=== PATIENT | female | born 1995 | race Caucasian/White ===

== ENCOUNTER 2017-12-19 10:54 | Outpatient (CLI) | payer OTHER ==
[~2017-12-19] VITALS: Ht 162.6 cm; Wt 67.3 kg
[2017-12-19 11:09] VITALS: BP 118/75; PULSE 80; TEMP 98.3
[2017-12-19 11:10] VITALS: BP 118/75; PULSE 80; TEMP 98.3
[2017-12-19] MEDS ORDERED: PRENATAL (11:15)
[2017-12-19 12:02] VITALS: BP 99/56; PULSE 74
[2017-12-19 12:13] VITALS: PULSE 78
== END 2017-12-19 12:17 | disposition home or self-care (01) ==
LOC: LDRO 10:54
DX: Z34.82 Encounter for supervision of other normal pregnancy, second trimester (principal); Z3A.23 23 weeks gestation of pregnancy

== ENCOUNTER 2020-12-24 12:28 | Outpatient (CLI) | payer OTHER ==
[~2020-12-24] VITALS: Ht 162.6 cm; Wt 69.5 kg
--- NOTE | 2020-12-24 12:20 | NUR ---
1220- 18.6, G6L2 patient arrives on unit with c/o of fall yesterday, and vaginal bleeding. Denies any LOF. Reports decreased in normal movement. Reports some mild cramping. Patient states the bleeing was worse yesterday, and has noticed a few smears of blood when wiping today. Vitals obtained. Assessment completed. 1240- FHR 140's-150's via doppler by Greg Rosenberg RN. 1244- Dr. Joyce updated on patient. See physician notification. 1325- Discharge instructions reviewed with patient and spouse who verbalize understanding. Ambulatory off unit to private vehicle.
[~2020-12-24 12:28] MED LIST: PRENATAL
[2020-12-24 12:30] VITALS: BP 106/62; PULSE 85; TEMP 98.6
[2020-12-24 13:01] VITALS: BP 106/62; PULSE 85; TEMP 98.8
[2020-12-24] MEDS ORDERED: PROAIR HFA0.09 MG/AC IH (13:06)
[2020-12-24 13:20] VITALS: BP 107/68; PULSE 78; TEMP 98.5
== END 2020-12-24 13:25 | disposition home or self-care (01) ==
LOC: LDRO 12:28
DX: O46.92 Antepartum hemorrhage, unspecified, second trimester (principal); Z3A.18 18 weeks gestation of pregnancy

== ENCOUNTER 2023-03-25 19:14 | Emergency (ER) | payer OTHER, BC ==
[~2023-03-25] VITALS: Ht 165.1 cm; Wt 64.5 kg
[~2023-03-25 19:14] MED LIST changes: +PROAIR HFA0.09 MG/AC IH
[2023-03-25 19:21] VITALS: TEMP 98.7
[2023-03-25 20:19] LABS: COLLECTION METHOD CLEAN CATCH
[2023-03-25 20:24] LABS: BASO # 0.1 K/mm3 (0.0-0.2); BASO % 0.6 % (0.0-2.0); EOS # 0.2 K/mm3 (0.0-0.7); EOS % 1.7 % (0.0-4.0); GRAN # 5.9 K/mm3 (1.4-6.5); GRAN % 62.8 % (42.2-75.2); HEMOGLOBIN 11.2 g/dl (12.5-16.0); LYMPH # 2.4 K/mm3 (1.2-3.4); LYMPH % 25.5 % (20.0-51.0); MEAN CELL VOLUME 94 fl (80.0-100.0); MEAN CORPUSCULAR HEMOGLOBIN 32 pg (27-31); MEAN CORPUSCULAR HGB CONC 34 g/dl (33.0-37.0); MEAN PLATELET VOLUME 9.9 fl (7.4-10.4); MONO # 0.9 K/mm3 (0.1-0.6); MONO % 9.1 % (1.7-9.3); PLATELET COUNT 214 K/mm3 (130-400); RED BLOOD COUNT 3.52 M/mm3 (4.10-5.30); REDCELL DISTRIBUTION WIDTH-CV 13.2 % (11.5-14.5)
[2023-03-25 20:25] LABS: URINE APPEARANCE Clear (CLEAR/HAZY); URINE BLOOD Negative (NEGATIVE); URINE COLOR Yellow (YELLOW); URINE GLUCOSE Negative (NEGATIVE); URINE KETONE Negative (NEGATIVE); URINE NITRATE Negative (NEGATIVE); URINE PROTEIN(semi-quant) Negative (NEGATIVE); URINE UROBILINOGEN 0.2 E.U/dL (0.2-1.0)
[2023-03-25 20:25] LABS: HEMATOCRIT 32.9 % (37.0-47.0)
[2023-03-25 20:26] LABS: MUCOUS Present (NOT PRESENT); SQUAMOUS EPITHELIAL 0-2 /hpf (0-10); URINE BACTERIA Rare /hpf (NONE SEEN); URINE RBC 0-2 /hpf (0-2)
[2023-03-25 20:46] LABS: BILIRUBIN,TOTAL 0.2 mg/dL (0.2-1.2); CALCIUM 8.7 mg/dL (8.4-10.2); CREATININE, serum 0.58 mg/dL (0.57-1.11); POTASSIUM 3.7 mmol/L (3.5-4.5); TOTAL PROTEIN 6.7 gm/dL (6.2-8.1)
[2023-03-25 21:33] VITALS: BP 96/70; PULSE 71
== END 2023-03-25 21:34 | disposition home or self-care (01) ==
LOC: COL.ER 19:14
PROVIDERS: Emergency Medicine
DX: O99.891 Other specified diseases and conditions complicating pregnancy (principal); R63.8 Other symptoms and signs concerning food and fluid intake; Z91.040 Latex allergy status; Z28.310 Unvaccinated for COVID-19; Z3A.21 21 weeks gestation of pregnancy
CPT/HCPCS: J7120

== ENCOUNTER 2024-07-22 09:26 | Day surgery (SDC) | payer MEDICAID ==
[~2024-07-22] VITALS: Ht 162.6 cm; Wt 59.8 kg
[~2024-07-22 09:26] MED LIST changes: +LR 1,000 ML IV SCH; +MOTRIN 800800 MG/TAB PO; +Ondansetron 4 MG/2 ML VIAL IV PRN
[2024-07-22] MEDS ORDERED: PROTONIX 40MG T40 MG PO (10:11)
[2024-07-22] MEDS ORDERED: TYLENOL 500MG500 MG PO (10:14)
[2024-07-22 10:31] VITALS: BP 115/74; PULSE 71; TEMP 98.5
[2024-07-22 11:20] VITALS: BP 109/71; PULSE 68; TEMP 98.1
[2024-07-22 11:35] VITALS: BP 106/70; PULSE 68
[2024-07-22 11:50] VITALS: BP 95/68; PULSE 72
--- NOTE | 2024-07-22 11:55 | NUR ---
1120 RETURNS TO ROOM 4 PER CART. AWAKE, ALERT. RESP UNLABORED. AMBULATES TO RECLINER WITH STANDBY ASSIST. DENIES NAUSEA, ABD/CHEST PAIN OR DYSPHAGIA. VITAL SIGNS OBTAINED. CALL SIGHT AT SIDE 1135 [address] PO JUICE AND MORGAN CRACKERS WITHOUT NASUEA. ADMITS TO SWALLOWING WITHOUT DIFFICULTY. DISCHARGE INSTRUCTIONS REVIEWED. PATIENT VERBALIZES UNDERSTANDING. COPY PROVIDED IN DISCHARGE FOLDER 4102 DR CUTLER HERE TO VISIT WITH PATIENT
== END 2024-07-22 11:57 | disposition home or self-care (01) ==
LOC: SDCO 09:26
DX: R68.81 Early satiety (principal); R11.0 Nausea; R10.13 Epigastric pain; R63.4 Abnormal weight loss; K62.5 Hemorrhage of anus and rectum; K64.9 Unspecified hemorrhoids; R63.0 Anorexia; Z87.11 Personal history of peptic ulcer disease; Z79.899 Other long term (current) drug therapy; Z79.52 Long term (current) use of systemic steroids
CPT/HCPCS: J2704; J7120

== ENCOUNTER 2024-09-07 16:58 | Emergency (ER) | payer SELFPAY ==
[~2024-09-07] VITALS: Ht 162.6 cm; Wt 58.6 kg
[~2024-09-07 16:58] MED LIST changes: -LR 1,000 ML IV SCH; -Ondansetron 4 MG/2 ML VIAL IV PRN; +PROTONIX 40MG T40 MG PO; +TYLENOL 500MG500 MG PO
[2024-09-07 17:02] VITALS: TEMP 98.3
[2024-09-07 22:10] VITALS: BP 128/80; PULSE 67
== END 2024-09-07 21:52 | disposition home or self-care (01) ==
LOC: COL.ER 16:58
DX: S00.93XA Contusion of unspecified part of head, initial encounter (principal); W22.8XXA Striking against or struck by other objects, initial encounter